=== PATIENT | female | born 1965 ===

== ENCOUNTER → 2024-08-04 10:45 | Outpatient (REF) | payer BC, SELFPAY ==
[2024-08-04 12:20] LABS: Glycohemoglobin (HgbA1c) 7.1 % (4.0-5.6)
[2024-08-04 13:07] LABS: Blood Urea Nitrogen 14 mg/dl (7-17); Calcium 9.3 mg/dl (8.4-10.2); Carbon Dioxide 24 mmol/L (22-30); Chloride 112 mmol/L (98-107); Glucose 114 mg/dl (70-99); Potassium 4.2 mmol/L (3.5-5.1); Sodium 143 mmol/L (135-145); eGFR > 60.00
== END ==
LOC: REG 10:45
PROVIDERS: ATTENDING PHYSICIAN Family Medicine
DX: E11.65 Type 2 diabetes mellitus with hyperglycemia (principal)
CPT/HCPCS: 36415; 80048; 83036